=== PATIENT | female | born 1985 | race Caucasian/White ===

== ENCOUNTER 2022-08-15 08:19 | Emergency (ER) | payer OTHER | END 2022-08-15 09:27 | disposition home or self-care (01) | LOC: JD.ED 08:19 | DX: S16.1XXA Strain of muscle, fascia and tendon at neck level, initial encounter (principal); S46.811A Strain of other muscles, fascia and tendons at shoulder and upper arm level, right arm, initial encounter; Z88.1 Allergy status to other antibiotic agents | CPT/HCPCS: 99282; 99283 ==